=== PATIENT | male | born 1985 | race Two or more races ===

== ENCOUNTER 2016-07-21 17:19 | Emergency (ER) | payer SELFPAY | END 2016-07-21 19:10 | disposition home or self-care (01) | LOC: CED 17:19 → CFTX 17:19 | DX: S33.5XXA Sprain of ligaments of lumbar spine, initial encounter (principal); X50.9XXA Other and unspecified overexertion or strenuous movements or postures, initial encounter; Y93.89 Activity, other specified; Y92.69 Other specified industrial and construction area as the place of occurrence of the external cause; Y99.0 Civilian activity done for income or pay | CPT/HCPCS: 96372; 99283; J1885 ==